=== PATIENT | female | born 1985 | race Caucasian/White ===

== ENCOUNTER 2023-06-09 09:54 | Emergency (ER) | payer BC, SELFPAY ==
[2023-06-09 09:58] VITALS: BP 132/96; PULSE 100; RESP 12; TEMP 36.1; O2SAT 97; BMI 20.9
--- NOTE | 2023-06-09 10:18 | EDS_ITS ---
HPI History of Present Illness Chief Complaint: Dizziness Narrative Narrative: 37-year-old female presenting with dizziness. She describes this as spinning, however she states she felt nauseous and then became quite anxious and felt like she was going to faint. She was able to sit down before she did so. She denies any chest pain but states she was short of breath during the episode. No history of vertigo. Patient states is otherwise healthy. She is eating and drinking normally. She making normal urine and stool. She does not concern for . No chest pain no abdominal pain. No urinary symptoms or vaginal symptoms. No cardiac history. PFSH PFSH Home Medications cetirizine 10 mg capsule (Zyrtec) 10 mg PO DAILY 05/26/17 [History Last Taken Unknown] omeprazole magnesium 20 mg tablet,delayed release (Prilosec OTC) 20 mg PO DAILY 05/26/17 [History Last Taken Unknown] ondansetron 4 mg disintegrating tablet 4 mg PO Q8H PRN PRN Nausea #10 tabs 05/26/17 [Rx Last Taken Unknown] meclizine 25 mg tablet 25 mg PO TID PRN dizziness #30 tabs 06/09/23 [Rx Last Taken Unknown] Allergy/AdvReac Type Severity Reaction Status Date / Time codeine Allergy Mild Hives Verified 06/09/23 09:58 citalopram [From Celexa] AdvReac Severe Abd Verified 06/09/23 09:58 cramps/diarrhea nickel AdvReac Mild Rash Verified 06/09/23 09:58 CLEARASYL Allergy Mild Other Uncoded 06/09/23 09:58 Social History Smoking Status: Former smoker ROS ROS ED ROS Narrative Vertiginous dizziness Constitutional Constitutional ED: Denies chills, fever(s) or sweats Eyes Eyes: Denies blurry vision or change in vision ENT ENT ED: Denies ear pain or sore throat Cardiovascular Cardiovascular: Denies chest pain, palpitations or racing heartbeat Respiratory/Chest Respiratory/Chest: Reports dyspnea; Denies cough or sputum Gastrointestinal Gastrointestinal: Denies abdominal pain, constipation, diarrhea, nausea or vomiting Genitourinary Genitourinary ED: Denies dysuria, hematuria or urinary frequency Musculoskeletal Musculoskeletal: Denies arthralgias, myalgias or neck pain Integumentary Denies abscess, Abrasions or rash Neurologic Neurologic: Denies headache(s), paresthesias or weakness Psychiatric Psychiatric: Reports anxiety; Denies depression, suicidal ideation or suicidal thoughts Endocrine Endocrinology: Denies polydipsia or polyuria EXAM Physical Exam Const Vital Signs: 06/09/23 09:58 06/09/23 10:08 06/09/23 11:06 Temperature 97 F L Temperature Source Temporal Pulse Rate 100 Pulse Rate [Lying] 83 Pulse Rate [Sitting (for 1 minute prior to obtaining)] 93 Pulse Rate [Standing (for 1 minute prior to obtaining)] 97 Respiratory Rate 12 Respiratory Effort Normal Respiratory Pattern Normal Blood Pressure 132/96 H Blood Pressure [Lying] 114/67 Blood Pressure [Sitting (for 1 minute prior to obtaining)] 123/81 H Blood Pressure [Standing (for 1 minute prior to obtaining)] 125/86 H Blood Pressure Mean 108 Blood Pressure Mean [Lying] 82 Blood Pressure Mean [Sitting (for 1 minute prior to obtaining)] 95 Blood Pressure Mean [Standing (for 1 minute prior to obtaining)] 99 Pulse Ox 97 Oxygen Delivery Method Room Air Positive well nourished General Appearance ED: NAD; Negative for pallor HEENT Reports moist mucous membranes HEENT Narrative: Negative [place] Eyes PERRL and EOMs intact bilaterally General Eye ED: Negative for pale conjunctiva or scleral icterus Neck no lymphadenopathy Chest Wall inspection of chest normal Resp normal respiratory effort and clear to auscultation bilaterally Auscultation: Negative for rales, rhonchi or wheezes Cardio regular rate and regular rhythm GI normal to inspection, nondistended, normoactive bowel sounds Extremity normal to inspection General Extremety ED: Negative for edema or tenderness General Extremity: Negative for edema Neuro oriented x3 and CN's II-XII intact bilaterally Sensorium / Orientation: alert Motor Exam: strength 5/5 throughout Psych mental status grossly normal Skin no rashes or lesions noted and no wounds General Skin Exam: Negative for jaundice or pallor MDM MDM MDM Narrative Medical decision making narrative: Patient presenting with dizziness. She describes it as the room spinning but unable to reproduce on exam. She states that during [place] testing she was not more or less dizzy. She does have a headache. No focal deficits. No chest pain. Differential includes benign positional vertigo, Dehydration, electrolyte abnormalities, dysrhythmia, dehydration, UTI, acute coronary syndrome, anxiety. CBC will be obtained to assess white blood cell count, hemoglobin, platelets. CMP to assess liver function, renal function, electrolytes, glucose. Urinalysis to assess for UTI. hCG to assess for . EKG to assess for dysrhythmia as well as high-sensitivity troponin to rule out ischemic causes. Chest x-ray to rule out pneumonia. I will obtain orthostatic vital signs as well. Patient will be medicated with meclizine as her symptoms do seem to be most consistent with a vertigo. She is amenable to this. CBC and CMP are normal. High-sensitivity troponin less than 3. EKG sinus rhythm at a ventricular rate of 75 bpm without signs of ischemia or ectopy on my interpretation. Chest x-ray my interpretation shows no acute process. Radiologist interprets this and agrees. Urinalysis and hCG negative. Patient feeling improved after treatment with meclizine. She is informed that her lab work-up is already normal. Her orthostatic vital signs were normal as well. Patient states she has follow-up with ENT next week but she is already scheduled because her ears are bothering her. I will put her on meclizine. Return precautions discussed. Impression: 1. Vertigo Lab Data Labs: Laboratory Results - last 24 hr 06/09/23 06/09/23 06/09/23 10:27 10:56 11:26 WBC 4.7 RBC 4.27 Hgb 12.2 Hct 37.5 MCV 87.8 MCH 28.6 MCHC 32.5 RDW Std Deviation 39.8 RDW Coeff of Roe 12.5 Plt Count 208 MPV 10.1 Immature Gran % (Auto) 0.200 Neut % (Auto) 57.4 Lymph % (Auto) 33.6 [facility] % (Auto) 7.0 Eos % (Auto) 0.9 Baso % (Auto) 0.9 Absolute Neuts (auto) 2.7 Absolute Lymphs (auto) 1.58 Nucleated RBC % 0 Sodium 138 Potassium 3.6 Chloride 110 H Carbon Dioxide 21.0 Anion Gap 7 BUN 12 Creatinine 0.69 Estim Creat Clear Calc 116.95 Est GFR (MDRD) Af Amer 124 Est GFR (MDRD) Non-Af 102 BUN/Creatinine Ratio 17.5 Glucose 106 Calcium 8.9 Total Bilirubin 0.40 AST 12 L ALT 18 Alkaline Phosphatase 51 Troponin I High Sens < 3 L Total Protein 7.1 Albumin 3.9 Globulin 3.2 Albumin/Globulin Ratio 1.2 Serum , Qual NEGATIVE Urine Color Yellow Urine Clarity Clear Urine pH 6.5 Ur Specific [place] 1.015 Urine Protein 15 H Urine Glucose (UA) Normal Urine Ketones Negative Urine Occult Blood 10 H Urine Nitrite Negative Urine Bilirubin Negative Urine Urobilinogen Normal Ur Leukocyte Esterase 25 H Urine RBC 0 SEEN Urine WBC 0-5 SEEN Ur Squamous Epith Cells 5-10 SEEN Urine Bacteria RARE Urine Mucus 0 SEEN Radiography Diagnostic Testing: Clinical Impression(s) from Imaging Studies Chest X-Ray 06/09/23 10:18 IMPRESSION: Normal x-ray examination of the chest. Electronically Signed: Ilir Arias MD at 11:12 EDT , Discharge Plan Triage Chief Complaint: Dizziness ED Provider: Preston Oconnell Dx/Rx/DC Orders Instructions: ED Dizziness, Uncertain Cause Prescriptions: New meclizine 25 mg tablet 25 mg PO TID PRN (Reason: dizziness) Qty: 30 0RF No Action omeprazole magnesium [Prilosec OTC] 20 MG tablet,delayed release (DR/EC) 20 mg PO DAILY cetirizine [Zyrtec] 10 MG capsule 10 mg PO DAILY ondansetron 4 MG tablet 4 mg PO Q8H PRN PRN (Reason: Nausea) Qty: 10 0RF Primary Care Provider: Mika Muro Referrals: Mika Muro DO [Primary Care Provider] - Disposition Disposition: Home, Self Care
--- NOTE | 2023-06-09 10:18 | RAD_ITS ---
STUDY: X-RAY CHEST REASON FOR EXAM: Female, 37 years old. Near syncope TECHNIQUE: Single AP portable view of the chest. COMPARISON: Prior comparison studies are not available for review at this time. FINDINGS: The lungs are clear and expanded. There is no demonstrated pleural abnormality. Normal size heart. Normal mediastinum and ligia. Normal visualized pulmonary arteries. Normal visualized aortic arch and descending thoracic aorta. Normal visualized thoracic spine. Normal visualized ribs, clavicles, and shoulders. There is no demonstrated abnormality of the visualized soft tissue structures of the upper abdomen. RAD/Chest 1 View (Portable) IMPRESSION: Normal x-ray examination of the chest. Electronically Signed: Ilir Arias MD at 11:12 EDT ,
--- NOTE | 2023-06-09 10:18 | EKG12_ITS ---
Test Reason : DIZZINESS Blood Pressure : / mmHG Vent. Rate : 075 BPM Atrial Rate : 075 BPM P-R Int : 136 ms QRS Dur : 100 ms QT Int : 380 ms P-R-T Axes : 074 078 038 degrees QTc Int : 424 ms Normal sinus rhythm Normal ECG Confirmed by KATHARINA COFFMAN, CASSANDRA ([id number]), video news editor ROBERTA LESLIE ([id number]) on 06/12/2023 9:07:42 AM Referred By: Confirmed By:CASSANDRA POSADAS MD
[2023-06-09] MEDS: Meclizine HCl 25 MG Tablet PO (10:23)
[2023-06-09 10:48] LABS: Internal QC Validated? YES +Cl - CLEAR BKGD; Pregnancy, Serum, hCG Quali. NEGATIVE Negative
[2023-06-09 10:56] LABS: ALB/GLOB Ratio 1.2 RATIO (0.9-2.4); AST(SGOT) 12 U/L (15-37); Alanine Aminotransfer ALT/SGPT 18 U/L (13-56); Albumin, Serum 3.9 g/dL (3.2-5.0); Alkaline Phosphatase 51 U/L (45-117); Anion Gap 7 (5-15); BUN 12 mg/dL (7-18); BUN/Creat Ratio 17.5 RATIO (10-20); Calcium,Total 8.9 mg/dL (8.5-10.1); Chloride 110 mmol/L (98-107); Creatinine, Serum 0.69 mg/dL (0.55-1.02); EST Glomerular Filtration Rate 102 mL/min (>60); Est Glom Filt Rate - Afr Amer 124 mL/min (>60); Estimated Creatinine Clearance 116.95 ml/min; Globulin 3.2 g/dL (2.2-4.2); Glucose 106 mg/dL (74-106); Potassium 3.6 mmol/L (3.5-5.1); Protein, Total 7.1 g/dL (6.4-8.2); Sodium Level 138 mmol/L (136-145); Troponin-I HS < 3 pg/mL (3.0-54.0)
[2023-06-09 11:05] LABS: Mucous, Urine 0 SEEN /hpf (<or=2+); Red Blood Cells-Urine 0 SEEN /hpf (0-5)
[2023-06-09 11:06] VITALS: BP 114/67; BP 123/81; BP 125/86; PULSE 83; PULSE 93; PULSE 97
[2023-06-09 11:15] LABS: Color, Urine Yellow (Yellow); Glucose, Dipstick Normal (Normal); Ketone-Dipstick Negative (Negative); Leukocyte Esterase-Dipstick 25 /ul (Negative); Nitrite-Dipstick Negative (Negative); Occult Blood-Urine 10 /ul (Negative); Protein-Dipstick 15 mg/dl (Negative); Specific Gravity, Urine 1.015 (1.002-1.030); Urine Bilirubin Dipstick Negative (Negative); Urine Clarity Clear (Clear); Urine Urobilinogen Normal (Normal); Urine pH 6.5 (5.0 - 8.0)
[2023-06-09 11:24] LABS: Bacteria RARE /hpf (None Seen); Squamous Epithelial Cells - UA 5-10 SEEN /hpf (5-10); White Blood Cells 0-5 SEEN /hpf (0-5)
[2023-06-09] MEDS: 0.9% Normal Saline 1,000 ML 999 ML IV (11:24)
[2023-06-09 11:47] LABS: Absolute Lymphocyte Count 1.58 X10^3/uL (0.83-4.51); Absolute Neutrophil Count 2.7 X10^3/uL (2.0-7.7); Basophil# 0.04 X10^3/uL; Basophil% 0.9 % (0-1); Eosinophil# 0.04 X10^3/uL; Eosinophils% 0.9 % (0-5); Hematocrit 37.5 % (37-47); Hemoglobin 12.2 g/dL (12.0-15.0); Lymphocyte # 1.58 X10^3/ul (0.83-4.51); Lymphocyte % 33.6 % (19-41); Mean Corp Hgb Conc 32.5 g/dL (32-36); Mean Corpuscular Hgb 28.6 pg (27.0-32.0); Mean Corpuscular Volume 87.8 fL (81-99); Mean Platelet Vol. 10.1 fl (6.2-12.0); Monocyte# 0.33 X10^3/uL; NRBC Flagged by Analyzer 0 % (0-5); Neutrophil % 57.4 % (47-70); Platelet Count 208 K/mm3 (150-450); RBC Distribution Width CV 12.5 % (11.6-14.6); RBC Distribution Width SD 39.8 fl (35.1-43.9); Red Blood Count 4.27 M/mm3 (4.2-5.4); White Blood Count 4.7 K/mm3 (4.4-11.0)
--- NOTE | 2023-06-09 12:34 | ED.RN ---
Patient verbalized understanding of instructions. Ambulatory from dept. IV removed intact.
[2023-06-09 12:42] VITALS: BP 126/78; PULSE 72; RESP 18
== END 2023-06-09 12:43 | disposition home or self-care (01) ==
PROVIDERS: Emergency Provider Student in an Organized Health Care Education/Training Program; PCP Student in an Organized Health Care Education/Training Program; Visit Provider Student in an Organized Health Care Education/Training Program
DX: R42 Dizziness and giddiness (principal); Z87.891 Personal history of nicotine dependence; R06.00 Dyspnea, unspecified; F41.9 Anxiety disorder, unspecified
CPT/HCPCS: 71045; 80053; 81001; 84484; 84703; 85025; 93005; 96360; 99283; J7030